=== PATIENT | female | born 1975 | race Hispanic/Latino ===

== ENCOUNTER 2017-09-15 10:19 | Outpatient (CLI) | payer OTHER ==
[2017-09-15 11:57] LABS: Blood Urea Nitrogen 8 mg/dL (7-17)
--- NOTE | 2017-09-15 16:57 | Cat Scan Report ---
FINAL REPORT PROCEDURE: CT ABDOMEN PELVIS W CON TECHNIQUE: Computerized axial tomography of the abdomen and pelvis was performed after the IV injection of iodinated nonionic contrast. Oral contrast. DLP 2637.97 mGy-cm. HISTORY: Dysfunctional uterine bleeding. COMPARISON: No prior studies are available for comparison. FINDINGS: Visualized lower thorax: No significant abnormality. Liver: Normal size and attenuation. Spleen: Normal size and attenuation. Gallbladder and biliary system: Normal. Pancreas: Normal. Adrenals: Normal. Kidneys: 9 mm low-attenuation lesion of the left kidney. GI tract: Small fat containing 5 mm lesion about the epiploic appendage of the proximal sigmoid colon (image 249 series 2, image 54 series 201, images 137-138 series 202). Few scattered diverticula. Moderate stool in the rectosigmoid colon. Oral contrast seen to the proximal descending colon. Normal caliber air-filled appendix. Lymph nodes and mesentery: A few small scattered mesenteric lymph nodes. Vasculature: Normal Bladder: Normal. Reproductive organs: 5.1 x 3.6 cm low-attenuation left ovarian/adnexal lesion. Smaller right ovarian follicle/cyst. Mild enlargement and slight heterogeneity of the uterus. Peritoneum: No free fluid. Musculoskeletal structures: Tiny multilevel osteophytes. Partial lumbarization of S1. Other: Fat filled umbilical hernia. Fat replacement of the medial left rectus muscle. IMPRESSION: Mild enlargement and heterogeneity of the uterus. 5.1 x 3.6 cm low-attenuation left ovarian/adnexal lesion with smaller right ovarian lesion. Finding may represent cyst. Considering history, recommend pelvic ultrasound for further characterization. Subtle fat containing lesion about sigmoid colon, consider epiploic appendagitis. A few scattered colonic diverticula. Low-attenuation left renal lesion, likely cyst. Consider correlation with ultrasound if there is continued clinical concern. Fat filled umbilical hernia.
== END 2017-09-15 10:20 | disposition home or self-care (01) ==
LOC: CT 10:19
DX: N83.8 Other noninflammatory disorders of ovary, fallopian tube and broad ligament (principal); N28.89 Other specified disorders of kidney and ureter; K57.90 Diverticulosis of intestine, part unspecified, without perforation or abscess without bleeding; K42.9 Umbilical hernia without obstruction or gangrene; K57.30 Diverticulosis of large intestine without perforation or abscess without bleeding
CPT/HCPCS: 36415; 74177; 82565; 84520; Q9967